=== PATIENT | female | born 1975 | race Caucasian/White ===

== ENCOUNTER 2016-10-13 15:20 | Emergency (ER) | payer OTHER ==
[~2016-10-13] VITALS: Ht 154.9 cm; Wt 127.2 kg
[~2016-10-13 15:20] MED LIST: AMLODIPINE BESY10 M1 PO; AMLODIPINE BESYL5 M1 PO; COL250 PO; COZ50 PO; COZAAR100 MG PO; ECO81 PO; ERYOO OD; ESCITALOPRAM10 M1 PO; ESCITALOPRAM20 M1 PO; FERG PO; IBUPROFEN400 MG PO; LEXAPRO10 MG PO; LORAZEPAM0.5 MG PO; LORAZEPAM1 MG PO; MOTRIN800 MG PO; NOR5 PO; PROVENTIL0.09 MG/A1 IH; PULMICORT0.5 MG/2 M IH; TRAMADOL HCL50 MG PO; VENTOLIN H0.09 MG/A1 INH; VITC PO; XOP1.25 HHN
[2016-10-13 19:58] VITALS: BP 145/82
== END 2016-10-13 19:59 | disposition home or self-care (01) ==
LOC: ED 15:20
DX: G43.909 Migraine, unspecified, not intractable, without status migrainosus (principal); J45.901 Unspecified asthma with (acute) exacerbation; I10 Essential (primary) hypertension; F41.9 Anxiety disorder, unspecified; F32.9 Major depressive disorder, single episode, unspecified; Z86.718 Personal history of other venous thrombosis and embolism
CPT/HCPCS: J1885; J2765; Q0092

== ENCOUNTER 2017-01-15 19:38 | Emergency (ER) | payer MEDICAID ==
[2017-01-16 00:46] VITALS: BP 121/78
== END 2017-01-16 00:46 | disposition home or self-care (01) ==
LOC: ED 19:38
DX: F41.9 Anxiety disorder, unspecified (principal); J45.909 Unspecified asthma, uncomplicated; F99 Mental disorder, not otherwise specified; Z79.1 Long term (current) use of non-steroidal anti-inflammatories (NSAID); Z79.51 Long term (current) use of inhaled steroids; Z79.899 Other long term (current) drug therapy
CPT/HCPCS: J1885; J2060; J2765

== ENCOUNTER 2017-01-29 21:42 | Emergency (ER) | payer MEDICAID ==
[2017-01-29 23:38] LABS: BASOPHIL % 0.7 % (0-2); PLATELET COUNT 338 x10^3mcL (130-400)
[2017-01-29 23:40] LABS: RED CELL DISTRIBUTION WIDTH 16.5 % (11.5-14.5)
[2017-01-30 00:06] LABS: CALCIUM 8.3 mg/dL (8.5-10.1); CARBON DIOXIDE 27.3 mmol/L (21-32); CHLORIDE SERUM 99 mmol/L (98-107); CREATININE SERUM 0.8 mg/dL (0.6-1.0); GFR1 > 60 mL/min; GLUCOSE SERUM 102 mg/dL (74-106); POTASSIUM SERUM 3.6 mmol/L (3.5-5.1); SODIUM SERUM 141 mmol/L (136-145)
[2017-01-30 00:11] LABS: ALKALINE PHOSPHATASE 87 U/L (46-116); ALT/SGPT 22 U/L (14-59); AST/SGOT 21 U/L (15-37); BILIRUBIN TOTAL 0.2 mg/dL (0.20-1.00); LIPASE 160 IU/L (73-393)
[2017-01-30 00:17] LABS: ALBUMIN 2.9 g/dL (3.4-5.0)
[2017-01-30 03:00] VITALS: BP 106/59
== END 2017-01-30 03:00 | disposition home or self-care (01) ==
LOC: ED 21:42
PROVIDERS: Emergency Medicine
DX: R07.89 Other chest pain (principal); R20.2 Paresthesia of skin; I10 Essential (primary) hypertension; J45.909 Unspecified asthma, uncomplicated; Z79.899 Other long term (current) drug therapy
CPT/HCPCS: 83880; J1200; J2270; J2765; J7030; Q0092; Q9967

== ENCOUNTER 2017-02-11 14:47 | Emergency (ER) | payer MEDICAID ==
[2017-02-11 18:00] VITALS: BP 119/75
== END 2017-02-11 18:00 | disposition home or self-care (01) ==
LOC: ED 14:47
DX: R51 Headache (principal); I10 Essential (primary) hypertension; E66.01 Morbid (severe) obesity due to excess calories
CPT/HCPCS: J1200; J2765; Q0092

== ENCOUNTER 2017-09-30 02:41 | Inpatient (IN) | payer OTHER ==
[~2017-09-30] VITALS: Ht 154.9 cm; Wt 119.3 kg
[2017-09-30] MEDS ORDERED: MASON NATURAL1000 IU (06:51)
[2017-09-30] MEDS ORDERED: GABAPENTIN100 M2 (06:51)
[2017-09-30] MEDS ORDERED: HYDROXYZINE50 M1 (06:52)
[2017-09-30] MEDS ORDERED: BUSPIRONE HCL5 MG (06:52)
[2017-09-30 07:32] LABS: BASOPHIL % 0.6 % (0-2); PLATELET COUNT 329 x10^3mcL (130-400)
[2017-09-30 07:34] LABS: RED CELL DISTRIBUTION WIDTH 15.9 % (11.5-14.5)
[2017-09-30 07:35] LABS: CALCIUM 8.5 mg/dL (8.5-10.1); CARBON DIOXIDE 24.4 mmol/L (21-32); CHLORIDE SERUM 104 mmol/L (98-107); CREATININE SERUM 0.9 mg/dL (0.6-1.0); GFR1 > 60 mL/min; GLUCOSE SERUM 96 mg/dL (74-106); POTASSIUM SERUM 4.5 mmol/L (3.5-5.1); SODIUM SERUM 139 mmol/L (136-145)
[2017-09-30 07:39] LABS: MAGNESIUM 1.9 mg/dL (1.8-2.4); PHOSPHOROUS 4.5 mg/dL (2.5-4.9)
[2017-09-30 07:50] LABS: T3 TOTAL 1.53 ng/mL
[2017-09-30 07:51] LABS: FREE T4 0.8 ng/dL (0.76-1.46); T4(THYROXINE) 7.4 ug/dL (4.7-13.3)
[2017-09-30 10:24] VITALS: BP 108/55; BP 112/64
[2017-09-30 10:48] VITALS: BP 104/72
[2017-09-30 13:00] VITALS: BP 108/63
[2017-09-30 15:29] LABS: CHOLESTEROL/HDL RATIO 2.6
[2017-09-30 16:25] VITALS: BP 104/61
[2017-09-30 21:38] VITALS: BP 107/63
[2017-10-01 00:32] LABS: UA SPECIFIC GRAVITY >=1.030 (1.005-1.035); microscopic required? YES; urine erythrocyte TRACE (NEGATIVE)
[2017-10-01 00:41] LABS: AMPHETAMINE QUAL UR NONE DETECTED (NEG <=1000)
[2017-10-01 05:26] VITALS: BP 109/57
[2017-10-01 06:28] LABS: CALCIUM 8.5 mg/dL (8.5-10.1); CARBON DIOXIDE 24.9 mmol/L (21-32); CHLORIDE SERUM 105 mmol/L (98-107); CREATININE SERUM 0.7 mg/dL (0.6-1.0); GFR1 > 60 mL/min; GLUCOSE SERUM 86 mg/dL (74-106); POTASSIUM SERUM 4.5 mmol/L (3.5-5.1); SODIUM SERUM 139 mmol/L (136-145)
[2017-10-01 06:34] LABS: BASOPHIL % 0.4 % (0-2); PLATELET COUNT 304 x10^3mcL (130-400)
[2017-10-01 06:51] LABS: RED CELL DISTRIBUTION WIDTH 15.9 % (11.5-14.5)
[2017-10-01 09:54] VITALS: BP 104/57
[2017-10-01 11:04] VITALS: Ht 154.9 cm; Wt 119.3 kg
[2017-10-01] MEDS ORDERED: ATIVAN0.5 M1 PO (11:14)
[2017-10-01] MEDS ORDERED: LASIX20 MG PO (11:15)
[2017-10-01] MEDS ORDERED: NEU300 PO (11:15)
[2017-10-01] MEDS ORDERED: LEXAPRO10 MG PO (11:32)
[2017-10-01 12:36] VITALS: BP 104/57
== END 2017-10-01 15:18 | disposition home or self-care (01) | DRG 54 ==
LOC: ED 02:41 → DU 06:54
PROVIDERS: Family Medicine Sports Medicine
DX: G43.909 Migraine, unspecified, not intractable, without status migrainosus (principal); I26.99 Other pulmonary embolism without acute cor pulmonale; M94.0 Chondrocostal junction syndrome [Tietze]; J45.909 Unspecified asthma, uncomplicated; I10 Essential (primary) hypertension; F32.9 Major depressive disorder, single episode, unspecified; D64.9 Anemia, unspecified; E02 Subclinical iodine-deficiency hypothyroidism; G62.9 Polyneuropathy, unspecified; G90.8 Other disorders of autonomic nervous system; F41.9 Anxiety disorder, unspecified; Z90.49 Acquired absence of other specified parts of digestive tract; Z86.718 Personal history of other venous thrombosis and embolism; Z79.01 Long term (current) use of anticoagulants; Z98.51 Tubal ligation status; Z82.49 Family history of ischemic heart disease and other diseases of the circulatory system; Z83.3 Family history of diabetes mellitus; Z80.9 Family history of malignant neoplasm, unspecified; Z82.0 Family history of epilepsy and other diseases of the nervous system; Z84.89 Family history of other specified conditions; Z87.891 Personal history of nicotine dependence
CPT/HCPCS: 83880; 84439; J1885; J2270; J7030; Q0092

== ENCOUNTER 2018-01-03 16:32 | Emergency (ER) | payer OTHER ==
[~2018-01-03] VITALS: Ht 154.9 cm; Wt 117.9 kg
[~2018-01-03 16:32] MED LIST changes: +ATIVAN0.5 M1 PO; +BUSPIRONE HCL5 MG; +GABAPENTIN100 M2; +HYDROXYZINE50 M1; +LASIX20 MG PO; +MASON NATURAL1000 IU; +NEU300 PO
[2018-01-03 16:37] VITALS: Ht 154.9 cm; Wt 117.9 kg
[2018-01-03 17:29] LABS: BASOPHIL % 0.7 % (0-2); PLATELET COUNT 364 x10^3mcL (130-400)
[2018-01-03 17:36] LABS: CARBON DIOXIDE 25.7 mmol/L (21-32); CHLORIDE SERUM 104 mmol/L (98-107); CREATININE SERUM 0.8 mg/dL (0.6-1.0); GFR1 > 60 mL/min; GLUCOSE SERUM 115 mg/dL (74-106); POTASSIUM SERUM 4.1 mmol/L (3.5-5.1); SODIUM SERUM 140 mmol/L (136-145)
[2018-01-03 17:37] LABS: RED CELL DISTRIBUTION WIDTH 14.7 % (11.5-14.5)
[2018-01-03 17:40] LABS: ALKALINE PHOSPHATASE 108 U/L (46-116); ALT/SGPT 22 U/L (14-59); AST/SGOT 18 U/L (15-37); BILIRUBIN TOTAL 0.18 mg/dL (0.20-1.00); TOTAL PROTEIN, SERUM 7.5 g/dL (6.4-8.2)
[2018-01-03 17:41] LABS: ALBUMIN 3.1 g/dL (3.4-5.0)
[2018-01-03 18:48] VITALS: BP 159/86
== END 2018-01-03 18:48 | disposition short-term general hospital (02) ==
LOC: ED 16:32
PROVIDERS: Emergency Medicine
DX: R51 Headache (principal); R53.1 Weakness; R20.0 Anesthesia of skin; R07.89 Other chest pain; J45.909 Unspecified asthma, uncomplicated; I10 Essential (primary) hypertension; Z86.73 Personal history of transient ischemic attack (TIA), and cerebral infarction without residual deficits
CPT/HCPCS: 83880; J2270; J2405

== ENCOUNTER 2019-01-10 17:13 | Emergency (ER) | payer OTHER ==
[~2019-01-10] VITALS: Ht 154.9 cm; Wt 123.4 kg
[2019-01-10 18:40] LABS: BASOPHIL % 1.7 % (0-2); PLATELET COUNT 337 x10^3mcL (130-400)
[2019-01-10 18:45] LABS: RED CELL DISTRIBUTION WIDTH 15.5 % (11.5-14.5)
[2019-01-10 18:52] LABS: CALCIUM 8.9 mg/dL (8.5-10.1); CARBON DIOXIDE 24.2 mmol/L (21-32); CHLORIDE SERUM 105 mmol/L (98-107); CREATININE SERUM 0.8 mg/dL (0.6-1.0); GFR1 > 60 mL/min; GLUCOSE SERUM 106 mg/dL (74-106); POTASSIUM SERUM 3.9 mmol/L (3.5-5.1); SODIUM SERUM 142 mmol/L (136-145)
[2019-01-10 18:59] LABS: ALKALINE PHOSPHATASE 86 U/L (46-116); ALT/SGPT 22 U/L (14-59); AST/SGOT 9 U/L (15-37); BILIRUBIN TOTAL 0.15 mg/dL (0.20-1.00); TOTAL PROTEIN, SERUM 7.3 g/dL (6.4-8.2)
[2019-01-10 19:02] LABS: ALBUMIN 3.1 g/dL (3.4-5.0)
[2019-01-10 19:47] VITALS: BP 137/76
== END 2019-01-10 20:24 | disposition home or self-care (01) ==
LOC: ED 17:13
PROVIDERS: Emergency Medicine
DX: R20.2 Paresthesia of skin (principal); R07.89 Other chest pain; D72.829 Elevated white blood cell count, unspecified; I10 Essential (primary) hypertension; F41.9 Anxiety disorder, unspecified; F32.9 Major depressive disorder, single episode, unspecified; G43.909 Migraine, unspecified, not intractable, without status migrainosus; Z86.73 Personal history of transient ischemic attack (TIA), and cerebral infarction without residual deficits
CPT/HCPCS: 36415; 85378; Q0092